=== PATIENT | female | born 1960 | race Two or more races ===

== ENCOUNTER → 2017-08-28 | Outpatient (CLI) | payer OTHER ==
--- NOTE | 2017-08-28 14:35 | REP ---
Clinical: Bronchitis . Comparison: None . Technique: PA and lateral. Findings: The mediastinum and cardiac silhouette are normal. The lung barbour are clear and without acute consolidation, effusion, or pneumothorax. The skeletal structures are intact and normal. Impression: No focal consolidation. Signed by Gwyn Randall MD 08/28/2017 02:27 P
== END ==
LOC: M LRY 13:59
PROVIDERS: ATTEND Physician Assistant
DX: J40 Bronchitis, not specified as acute or chronic (principal)

== ENCOUNTER 2017-09-29 23:50 | Emergency (ER) | payer OTHER | END 2017-09-30 02:59 | disposition home or self-care (01) | LOC: M ED 23:50 | DX: J06.9 Acute upper respiratory infection, unspecified (principal); Z91.14 Patient's other noncompliance with medication regimen; I48.91 Unspecified atrial fibrillation; G20 Parkinson's disease; K21.9 Gastro-esophageal reflux disease without esophagitis; F33.9 Major depressive disorder, recurrent, unspecified; Z79.82 Long term (current) use of aspirin; Z79.899 Other long term (current) drug therapy; Z88.5 Allergy status to narcotic agent | CPT/HCPCS: 71020 ==